=== PATIENT | male | born 1945 | race Caucasian/White ===

== ENCOUNTER 2021-01-21 09:56 | Emergency (ER) | payer OTHER, MEDICAID ==
[~2021-01-21] VITALS: Ht 182.9 cm; Wt 81.6 kg
[2021-01-21 10:06] VITALS: Ht 182.9 cm; Wt 81.6 kg
[2021-01-21 14:39] VITALS: BP 165/72
== END 2021-01-21 14:40 | disposition home or self-care (01) ==
LOC: ED 09:56
DX: S13.4XXA Sprain of ligaments of cervical spine, initial encounter (principal); S46.911A Strain of unspecified muscle, fascia and tendon at shoulder and upper arm level, right arm, initial encounter; S09.8XXA Other specified injuries of head, initial encounter; L03.115 Cellulitis of right lower limb; F03.90 Unspecified dementia, unspecified severity, without behavioral disturbance, psychotic disturbance, mood disturbance, and anxiety; W18.39XA Other fall on same level, initial encounter; Y93.89 Activity, other specified; Y92.89 Other specified places as the place of occurrence of the external cause; Y99.8 Other external cause status